=== PATIENT | female | born 1990 | race Caucasian/White ===

== ENCOUNTER 2016-07-18 16:11 | Emergency (ER) | payer MEDICARE, MEDICAID ==
[~2016-07-18] VITALS: Ht 167.6 cm; Wt 72.6 kg
[~2016-07-18 16:11] MED LIST: FERR325T PO; PREN27TA7 OR
[2016-07-18 17:00] VITALS: BP 124/76
[2016-07-18] MEDS ORDERED: IBUPROFEN 600 MG TAB PO ONE (17:15)
== END 2016-07-18 18:38 | disposition home or self-care (01) ==
LOC: EDBD 16:11 → ER 16:34
DX: S16.1XXA Strain of muscle, fascia and tendon at neck level, initial encounter (principal); R51 Headache; V03.99XA Pedestrian with other conveyance injured in collision with car, pick-up truck or van, unspecified whether traffic or nontraffic accident, initial encounter; Y93.01 Activity, walking, marching and hiking; Y99.8 Other external cause status; Y92.410 Unspecified street and highway as the place of occurrence of the external cause; Z88.8 Allergy status to other drugs, medicaments and biological substances
CPT/HCPCS: 70450; 72040

== ENCOUNTER 2018-11-07 19:30 | Emergency (ER) | payer MEDICARE, MEDICAID ==
[~2018-11-07] VITALS: Ht 157.5 cm; Wt 78.0 kg
[~2018-11-07 19:30] MED LIST changes: +FERR-20 PO; -FERR325T PO
[2018-11-07 20:29] LABS: Basophils # (auto) 0 uL; Eosinophils # (auto) 0.1 uL; White Blood Cell 6.6 10^3/uL (4.4-10.8)
[2018-11-07 20:30] LABS: Basophils % (auto) 0.4 % (0.0-2.0); Eosinophils % (auto) 1.1 % (0.0-7.0); Hematocrit 38.8 % (36.0-46.0); Hemoglobin 12.6 g/dL (12.2-16.2); Lymphocytes # (auto) 1.1 uL; Mean Corpuscular Hemoglobin 25.8 pg (28.0-32.0); Mean Corpuscular Hgb Conc. 32.5 g/dL (32.0-36.0); Mean Corpuscular Volume 79.5 fL (80.0-100.0); Monocytes # (auto) 0.5 uL; Monocytes % (auto) 7.6 % (0.0-12.0); Neutrophils # (auto) 4.9 uL; Neutrophils % (auto) 73.9 % (37.0-80.0); Platelet Count (auto) 151 10^3/uL (140-450); Red Blood Cells 4.88 10^6/uL (4.0-5.20)
[2018-11-07 20:40] LABS: Albumin 3.5 g/dL (3.4-5.0); Calcium 8.4 mg/dL (8.5-10.1); Potassium 3.7 mmol/L (3.5-5.1)
[2018-11-07 20:45] LABS: BUN/Creatinine Ratio 18.7; Bilirubin, Total 0.3 mg/dL (0.2-1.0); Total Protein 7.8 g/dL (6.4-8.2)
[2018-11-07 21:34] LABS: Urine Bacteria NONE SEEN /hpf (None Seen); Urine Blood 2+ /uL (Negative); Urine Mucus FEW (None Seen); Urine Specific Gravity 1.027 (1.001-1.035); Urine WBC <1 /hpf (0 - 5)
[2018-11-07] MEDS ORDERED: SODIUM CHLORIDE 0.9% 1,000 ML IV ONE (23:00)
[2018-11-07] MEDS ORDERED: MORPHINE SULFATE 4 MG/ML SYR/VIAL IV ONE (23:00)
[2018-11-07] MEDS ORDERED: ONDANSETRON HCL 4 MG/2 ML VIAL IV ONE (23:00)
[2018-11-08 01:00] VITALS: BP 94/49
== END 2018-11-08 02:40 | disposition home or self-care (01) ==
LOC: ER 19:52
DX: N83.202 Unspecified ovarian cyst, left side (principal); Z98.51 Tubal ligation status; Z88.0 Allergy status to penicillin
CPT/HCPCS: 36415; 74176; 76830; 80053; 81001; 82150; 83690; 84702; 85025; 96374; 96375; 99284; J2270; J2405; J7030

== ENCOUNTER 2018-11-08 20:03 | Emergency (ER) | payer MEDICARE, MEDICAID ==
[~2018-11-08] VITALS: Ht 157.5 cm; Wt 78.0 kg
[2018-11-09] MEDS ORDERED: HYDROmorphone HCL 2 MG/ML VL IV ONE (01:45)
[2018-11-09] MEDS ORDERED: ONDANSETRON HCL 4 MG/2 ML VIAL IV ONE (01:45)
[2018-11-09 01:57] LABS: Basophils # (auto) 0 uL; Basophils % (auto) 0.6 % (0.0-2.0); Eosinophils # (auto) 0.1 uL; Eosinophils % (auto) 1.1 % (0.0-7.0); Hematocrit 36.7 % (36.0-46.0); Hemoglobin 12.1 g/dL (12.2-16.2); Lymphocytes # (auto) 1.1 uL; Lymphocytes % (auto) 17.1 % (10.0-50.0); Mean Corpuscular Hemoglobin 26.1 pg (28.0-32.0); Mean Corpuscular Hgb Conc. 33.1 g/dL (32.0-36.0); Mean Corpuscular Volume 78.8 fL (80.0-100.0); Monocytes # (auto) 0.8 uL; Monocytes % (auto) 11.6 % (0.0-12.0); Neutrophils # (auto) 4.7 uL; Neutrophils % (auto) 69.6 % (37.0-80.0); Platelet Count (auto) 139 10^3/uL (140-450); Red Blood Cells 4.65 10^6/uL (4.0-5.20); Red Cell Distribution Width 15.3 % (11.8-14.3); White Blood Cell 6.7 10^3/uL (4.4-10.8)
[2018-11-09 02:11] LABS: INR 1.05 (0.9-1.15)
[2018-11-09 02:12] LABS: Albumin 3.4 g/dL (3.4-5.0); BUN/Creatinine Ratio 14.1; Calcium 8.1 mg/dL (8.5-10.1); Potassium 3.5 mmol/L (3.5-5.1)
[2018-11-09 02:15] LABS: Bilirubin, Total 0.4 mg/dL (0.2-1.0); Total Protein 7.2 g/dL (6.4-8.2)
[2018-11-09] MEDS ORDERED: SODIUM CHLORIDE 0.9% 1,000 ML IV ONE (02:15)
[2018-11-09] MEDS ORDERED: KETOROLAC TROMETH 30 MG/ML 1ML VIAL IV ONE (02:15)
[2018-11-09 03:54] LABS: Urine Bacteria FEW /hpf (None Seen); Urine Blood 2+ /uL (Negative); Urine Mucus FEW (None Seen); Urine Specific Gravity 1.017 (1.001-1.035); Urine WBC 12 /hpf (0 - 5)
[2018-11-09] MEDS ORDERED: cefTRIAXone 1GM/50ML D5W 50 ML IV ONE (04:30)
[2018-11-09 05:44] VITALS: BP 103/53
== END 2018-11-09 04:26 | disposition home or self-care (01) ==
LOC: ER 20:03
DX: N39.0 Urinary tract infection, site not specified (principal); Z88.0 Allergy status to penicillin; Z79.899 Other long term (current) drug therapy; Z98.51 Tubal ligation status
CPT/HCPCS: 36415; 80053; 81001; 82150; 83690; 83735; 84702; 85025; 85610; 85730; 94761; 96365; 96375; 99283; J0696; J1170; J1885; J2405; J7030

== ENCOUNTER 2019-03-22 00:08 | Emergency (ER) | payer MEDICARE, MEDICAID ==
[~2019-03-22] VITALS: Ht 157.5 cm; Wt 76.2 kg
[2019-03-22 01:07] LABS: Basophils # (auto) 0.1 uL; Eosinophils # (auto) 0.1 uL
[2019-03-22 01:08] LABS: Basophils % (auto) 1.4 % (0.0-2.0); Eosinophils % (auto) 1.5 % (0.0-7.0); Hematocrit 36.7 % (36.0-46.0); Hemoglobin 12.2 g/dL (12.2-16.2); Lymphocytes # (auto) 2.1 uL; Lymphocytes % (auto) 26.1 % (10.0-50.0); Mean Corpuscular Hemoglobin 26.7 pg (28.0-32.0); Mean Corpuscular Hgb Conc. 33.3 g/dL (32.0-36.0); Mean Corpuscular Volume 80.1 fL (80.0-100.0); Monocytes # (auto) 0.7 uL; Nucleated Red Blood Cells % 0.1 %; Platelet Count (auto) 163 10^3/uL (140-450); Red Blood Cells 4.59 10^6/uL (4.0-5.20); Red Cell Distribution Width 15.3 % (11.8-14.3); White Blood Cell 8.1 10^3/uL (4.4-10.8)
[2019-03-22 01:26] LABS: Albumin 3.6 g/dL (3.4-5.0); Calcium 9.1 mg/dL (8.5-10.1); Potassium 3.5 mmol/L (3.5-5.1)
[2019-03-22 01:29] LABS: BUN/Creatinine Ratio 24.7
[2019-03-22 01:38] LABS: Bilirubin, Total 0.2 mg/dL (0.2-1.0); Total Protein 7.8 g/dL (6.4-8.2)
[2019-03-22] MEDS ORDERED: SODIUM CHLORIDE 0.9% 1,000 ML IV ONE (06:30)
[2019-03-22 08:47] VITALS: BP 103/57
[2019-03-22 09:07] LABS: Urine Bacteria NONE SEEN /hpf (None Seen); Urine Blood 1+ /uL (Negative); Urine Mucus FEW (None Seen); Urine Specific Gravity 1.031 (1.001-1.035); Urine WBC 1 /hpf (0 - 5)
[2019-03-22] MEDS ORDERED: cefTRIAXone 1GM/50ML D5W 50 ML IV ONE (09:45)
[2019-03-22] MEDS ORDERED: cefTRIAXone SOD 1,000 MG VL ONE (09:45)
[2019-03-22] MEDS ORDERED: HYDROcodone-ACET 5/325MG TAB ONE (09:49)
[2019-03-22] MEDS ORDERED: HYDROcodone-ACET 5/325MG TAB PO ONE (10:00)
[2019-03-23 06:06] LABS: RPR Non Reactive (Non Reactive)
== END 2019-03-22 11:36 | disposition home or self-care (01) ==
LOC: ER 00:08
DX: N73.9 Female pelvic inflammatory disease, unspecified (principal); Z98.51 Tubal ligation status; Z87.42 Personal history of other diseases of the female genital tract
CPT/HCPCS: 36415; 76856; 80053; 81001; 84702; 85025; 86592; 87491; 87591; 96365; 99284; J0696; J7030

== ENCOUNTER 2021-05-01 00:15 | Emergency (ER) | payer MEDICARE, MEDICAID ==
[~2021-05-01] VITALS: Ht 157.5 cm; Wt 65.8 kg
[2021-05-01] MEDS ORDERED: KETOROLAC TROMETH 30 MG/ML 1ML VIAL IM ONE (05:00)
[2021-05-01 05:09] VITALS: BP 116/70
== END 2021-05-01 06:15 | disposition home or self-care (01) ==
LOC: ER 00:15
DX: S40.021A Contusion of right upper arm, initial encounter (principal); S50.11XA Contusion of right forearm, initial encounter; R22.0 Localized swelling, mass and lump, head; Z98.51 Tubal ligation status; Z88.0 Allergy status to penicillin; Y04.2XXA Assault by strike against or bumped into by another person, initial encounter; Y93.89 Activity, other specified; Y92.89 Other specified places as the place of occurrence of the external cause; Y99.8 Other external cause status
CPT/HCPCS: 73060; 73090; 96372

== ENCOUNTER 2021-05-20 17:57 | Emergency (ER) | payer MEDICARE, MEDICAID, OTHER ==
[~2021-05-20] VITALS: Ht 157.5 cm; Wt 74.8 kg
[2021-05-20] MEDS ORDERED: ONDANSETRON HCL 4 MG/2 ML VIAL IV ONE (19:00)
[2021-05-20] MEDS ORDERED: HYDROmorphone HCL 2 MG/ML VL IV ONE (19:00)
[2021-05-20 19:15] LABS: Basophils # (auto) 0.1 10 ^3/uL (0-0.2); Eosinophils # (auto) 0.1 10 ^3/uL (0-0.8); Monocytes # (auto) 0.9 10 ^3/uL (0-1.3)
[2021-05-20 19:17] LABS: Basophils % (auto) 0.7 % (0.0-2.0); Eosinophils % (auto) 1.2 % (0.0-7.0); Hemoglobin 11.6 g/dL (12.2-16.2); Lymphocytes # (auto) 1.7 10 ^3/uL (0.4-5.4); Lymphocytes % (auto) 20.8 % (10.0-50.0); Mean Corpuscular Hemoglobin 25.9 pg (28.0-32.0); Mean Corpuscular Hgb Conc. 33.1 g/dL (32.0-36.0); Mean Corpuscular Volume 78.2 fL (80.0-100.0); Monocytes % (auto) 10.8 % (0.0-12.0); Neutrophils # (auto) 5.5 10 ^3/uL (1.6-8.6); Neutrophils % (auto) 66.5 % (37.0-80.0); Nucleated Red Blood Cells % 0.1 %; Red Blood Cells 4.48 10^6/uL (4.0-5.20); Red Cell Distribution Width 14.5 % (11.8-14.3); White Blood Cell 8.2 10^3/uL (4.4-10.8)
[2021-05-20] MEDS ORDERED: IOHEXOL 300 MG/ML 100ML BOTTLE IJ ONE (19:28)
[2021-05-20 19:36] LABS: Albumin 3.3 g/dL (3.4-5.0); Calcium 8.7 mg/dL (8.5-10.1); Potassium 3.6 mmol/L (3.5-5.1)
[2021-05-20 19:40] LABS: Bilirubin, Total 0.2 mg/dL (0.2-1.0); Total Protein 7.3 g/dL (6.4-8.2)
[2021-05-20 20:27] LABS: Urine Bacteria MOD /hpf (None Seen); Urine Blood 3+ /uL (Negative); Urine Mucus FEW (None Seen); Urine Specific Gravity 1.029 (1.001-1.035); Urine WBC 27 /hpf (0 - 5)
[2021-05-20 20:42] LABS: BUN/Creatinine Ratio 30.6
[2021-05-21] MEDS ORDERED: KETOROLAC TROMETH 30 MG/ML 1ML VIAL IV ONE (00:45)
[2021-05-21] MEDS ORDERED: NAP500T PO (00:57)
[2021-05-21 01:18] VITALS: BP 101/66
== END 2021-05-21 01:45 | disposition home or self-care (01) ==
LOC: EDBD 17:57 → EDUNIT# 17:57 → ER 17:57
DX: S13.4XXA Sprain of ligaments of cervical spine, initial encounter (principal); S93.401A Sprain of unspecified ligament of right ankle, initial encounter; S00.03XA Contusion of scalp, initial encounter; S29.9XXA Unspecified injury of thorax, initial encounter; Z86.2 Personal history of diseases of the blood and blood-forming organs and certain disorders involving the immune mechanism; Z79.899 Other long term (current) drug therapy; Z88.0 Allergy status to penicillin; Z91.018 Allergy to other foods; V43.62XA Car passenger injured in collision with other type car in traffic accident, initial encounter; Y93.89 Activity, other specified; Y92.410 Unspecified street and highway as the place of occurrence of the external cause; Y99.8 Other external cause status
CPT/HCPCS: 36415; 70450; 71260; 72125; 73610; 74177; 80053; 81001; 83690; 84702; 85025; 96374; 96375; 96376; 99285; J1170; J1885; J2405; Q9967

== ENCOUNTER 2023-11-30 12:14 | Emergency (ER) | payer BC, MEDICAID ==
[~2023-11-30] VITALS: Ht 157.5 cm; Wt 73.3 kg
[~2023-11-30 12:14] MED LIST changes: -FERR-20 PO; +FERR325T24 PO
[2023-11-30 12:55] VITALS: BP 99/54; PULSE 69; RESP 18; TEMP 99.1; O2SAT 98
[2023-11-30] MEDS ORDERED: NAPR-746 PO (13:30)
== END 2023-11-30 13:43 | disposition home or self-care (01) ==
LOC: ER 12:27
DX: S60.221A Contusion of right hand, initial encounter (principal); F41.9 Anxiety disorder, unspecified; Z86.2 Personal history of diseases of the blood and blood-forming organs and certain disorders involving the immune mechanism; Z98.890 Other specified postprocedural states; Z88.0 Allergy status to penicillin; Z91.018 Allergy to other foods; Z79.899 Other long term (current) drug therapy; W22.8XXA Striking against or struck by other objects, initial encounter; Y93.89 Activity, other specified; Y92.89 Other specified places as the place of occurrence of the external cause; Y99.8 Other external cause status
CPT/HCPCS: 73130

== ENCOUNTER 2024-02-22 09:38 | Inpatient (IN) | payer BC, MEDICAID ==
[~2024-02-22] VITALS: Ht 154.9 cm; Wt 82.7 kg
[~2024-02-22 09:38] MED LIST changes: +NAPR-746 PO
--- NOTE | 2024-02-22 11:02 | ED.PDOC ---
History of Present Illness HPI Comments 34 y/o F, Hx of anemia, anxiety, cholelithiasis, seizures, obesity, and BTL, presents with c/o right-sided flank pain, today. Patient endorses on sudden and unprovoked onset of pain, this morning, that she comments on being non-radiating and a "20/10" in severity. She states on having no prior Hx of pain in the past and having a multiple near-syncope sensations. She endorses no Hx of kidney stones in the past in addition to any further relevant or pertinent Hx, such as recent strenuous activities. She denies any urinary symptoms, nausea, vomiting, or other associated symptoms or modifiers at this time. Chief Complaint: Flank Pain Time Seen by MD: 10:50 Primary Care Provider: Vincent Valles Notes: Nurses Notes, Medications, Allergies Allergies: Coded Allergies: Cinnamon (Verified Allergy, Unknown, THROAT CLOSES, DIFFICULTY BREATHING, 12/18/13) Penicillins (Unverified Allergy, Unknown, 01/25/15) Home Meds Active Scripts Naproxen (Naproxen) 500 Mg Tab, 500 MG PO BID, #30 TAB Prov:ART TRUJILLO 11/30/23 Reported Medications Ferrous Sulfate (Ferrous Sulfate) 325 Mg Tab, 325 MG PO BIDWM for 30 Days, MG 03/12/15 Vit W/ Ferrous Fumara () 1 Tab Tab, 1 TAB OR DAILY, TAB 08/27/13 Information Source: Patient Mode of Arrival: EMS Severity: Moderate Timing: Hours Duration: Since onset Prehospital treatment: 12 Lead EKG, [employer] Past Medical History PAST MEDICAL HISTORY: Anemia, Anxiety, Gallstones, Seizures Past Medical History (Other): obesity Surgical History: BTL Surgical History (Other): "ear tubes" 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 [employer]A FIELD WORKER History Family History Family History: Reviewed,noncontributory to illness, Family hx of DM, Family hx of heart mauricio Social History Smoker: Non-Smoker Alcohol: Denies ETOH Use Drugs: Denies Drug Use Lives In: Home Constitutional: denies: chills, diaphoresis, fatigue, fever, malaise, sweats, weakness, others EENTM: denies: blurred vision, double vision, ear bleeding, ear discharge, ear drainage, ear pain, ear ringing, eye pain, eye redness, hearing loss, mouth pain, mouth swelling, nasal discharge, nose bleeding, nose congestion, nose pain, photophobia, tearing, throat pain, throat swelling, voice changes, others Respiratory: denies: cough, hemoptysis, orthopnea, SOB at rest, shortness of breath, SOB with excertion, stridor, wheezing, others Cardiovascular: denies: chest pain, dizzy spells, diaphoresis, Dyspnea on exertion, edema, irregular heart beat, left arm pain, lightheadedness, palpitations, PND, syncope, others Gastrointestinal: denies: abdomen distended, abdominal pain, blood streaked bowels, constipated, diarrhea, dysphagia, difficulty swallowing, hematemesis, melena, nausea, poor appetite, poor fluid intake, rectal bleeding, rectal pain, vomiting, others Genitourinary: reports: flank pain (right-sided); denies: abnormal vagina bleeding, burning, dyspareunia, dysuria, frequency, hematuria, incontinence, pain, , vagina discharge, urgency, others Neurological: denies: dizziness, fainting, headache, left sided numbness, left sided weakness, numbness, paresthesia, pre-existing deficit, right sided numbness, right sided weakness, seizure, speech problems, tingling, tremors, weakness, others Musculoskeletal: denies: back pain, gout, joint pain, joint swelling, muscle pain, muscle stiffness, neck pain, others Integumetry: denies: bruises, change in color, change in hair/nails, dryness, laceration, lesions, lumps, rash, wounds, others Allergic/Immunocompromised: denies: Difficulty Healing, Frequent Infections, Hives, Itching, others Hematologic/Lymphatic: denies: anemia, blood clots, easy bleeding, easy bruising, swollen glands, others Endocrine: denies: excessive hunger, excessive sweating, excessive thirst, excessive urination, flushing, intolerance to cold, intolerance to heat, unexplained weight gain, unexplained weight loss, others Psychiatric: denies: anxiety, bipolar disorder, depression, hopeless, panic disorder, schizophrenia, sleepless, suicidal, others All Other Systems: Reviewed and Negative Physical Exam General Appearance: Moderate Distress HEENT: Normal ENT Inspection, Pharynx Normal, TMs Normal Neck: Full Range of Motion, Non-Tender, Normal, Normal Inspection Respiratory: Chest Non-Tender, Lungs Clear, No Accessory Muscle Use, No Respiratory Distress, Normal Breath Sounds Cardiovascular: No Edema, No JVD, No Murmur, No Gallop, Normal Peripheral Pulses, Regular Rate/Rhythm Breast Exam: Deferred Gastrointestinal: No Organomegaly, Non Tender, No Pulsatile Mass, Normal Bowel Sounds, Soft Genitalia: Deferred Pelvic: Deferred Rectal: Deferred Extremities: No calf tenderness, Normal capillary refill, Normal inspection, Normal range of motion, Non-tender, No pedal edema Musculoskeletal : Apperance: Normal Neurologic: Alert, hydrogenation operator II-XII nml as Tested, No Motor Deficits, Normal Affect, Normal Mood, No Sensory Deficits Cerebellar Function: Normal Reflexes: Normal Skin: Dry, Normal Color, Warm Lymphatic: No Adenopathy Was a procedure done? Was a procedure done?: No Differential Dx Considerations may include: nephrolithiasis, pyelonephritis, cholelithiasis, cholecystis, cystis, ovarian torsion, ovarian cysts, acute abdomen X-Ray, Labs, Meds, VS Vital Signs Date Time Temp Pulse Resp B/P (MAP) Pulse Ox O2 Delivery O2 Flow Rate FiO2 02/22/24 14:15 78 19 123/47 02/22/24 11:40 71 20 127/58 02/22/24 10:58 71 18 96 Room Air 02/22/24 10:58 71 18 127/58 (81) 98 02/22/24 09:41 98.0 72 18 113/62 (79) 97 Lab Test 02/22/24 11:50 Range/Units White Blood Count 10.4 4.4-10.8 10^3/uL Red Blood Count 4.76 4.0-5.20 10^6/uL Hemoglobin 13.5 12.2-16.2 g/dL Hematocrit 39.3 36.0-46.0 % Mean Corpuscular Volume 82.7 80.0-100.0 fL Mean Corpuscular Hemoglobin 28.3 28.0-32.0 pg Mean Corpuscular Hemoglobin Concent 34.2 32.0-36.0 g/dL Red Cell Distribution Width 14.4 H 11.8-14.3 % Platelet Count 162 140-450 10^3/uL Mean Platelet Volume 8.3 6.9-10.8 fL Neutrophils (%) (Auto) 83.3 H 37.0-80.0 % Lymphocytes (%) (Auto) 11.1 10.0-50.0 % Monocytes (%) (Auto) 5.2 0.0-12.0 % Eosinophils (%) (Auto) 0.1 0.0-7.0 % Basophils (%) (Auto) 0.3 0.0-2.0 % Neutrophils # (Auto) 8.7 H 1.6-8.6 10 ^3/uL Lymphocytes # (Auto) 1.2 0.4-5.4 10 ^3/uL Monocytes # (Auto) 0.5 0-1.3 10 ^3/uL Eosinophils # (Auto) 0 0-0.8 10 ^3/uL Basophils # (Auto) 0 0-0.2 10 ^3/uL Nucleated Red Blood Cells 0.0 % Sodium Level 139 136-145 mmol/L Potassium Level 3.9 3.5-5.1 mmol/L Chloride Level 110 H 98-107 mmol/L Carbon Dioxide Level 22 20-31 mmol/L Anion Gap 7 5-15 Blood Urea Nitrogen 16 9-23 mg/dL Creatinine 0.65 0.550-1.02 mg/dL Glomerular Filtration Rate Calc 118 >90 mL/min BUN/Creatinine Ratio 24.6 H 10.0-20.0 Serum Glucose 128 H 74-106 mg/dL Calcium Level 9.4 8.7-10.4 mg/dL Total Bilirubin 0.2 0.2-1.0 mg/dL Aspartate Amino Transferase (AST) 13 13-40 U/L Alanine Aminotransferase (ALT) 16 7-40 U/L Alkaline Phosphatase 57 46-116 U/L Total Protein 7.0 5.7-8.2 g/dL Albumin 4.1 3.2-4.8 g/dL Current Medications Medications (Trade) Dose Ordered Sig/Perla Route Start Time Stop Time Status Last Admin Ondansetron HCl (Zofran) 4 mg ONCE ONCE IV 02/22/24 11:00 02/22/24 11:01 DC 02/22/24 11:40 Morphine Sulfate 4 mg ONCE ONCE IV 02/22/24 11:00 02/22/24 11:01 DC 02/22/24 11:40 Sodium Chloride 500 ml @ 500 mls/hr Q1H ONCE IVB 02/22/24 11:00 02/22/24 11:59 DC 02/22/24 11:53 Ketorolac Tromethamine (Toradol Injection) 30 mg ONCE ONCE IV 02/22/24 11:00 02/22/24 11:01 DC 02/22/24 11:40 Morphine Sulfate 4 mg ONCE ONCE IV 02/22/24 14:15 02/22/24 14:16 DC 02/22/24 14:15 PROCEDURE(s): ABPL - CT AB PEL WO CON-NO ORAL OR IV IMPRESSION: 1. There is no acute process in the abdomen and pelvis. 2. 3.9 cm left ovarian cyst. 3. Multiple nonspecific scattered small subcentimeter mesenteric and retroperitoneal lymph nodes. These may be reactive in nature. Clinical correlation is recommended. IV Hep-Lock was established. The patient was given Zofran 4 mg IV push for the nausea The patient was given morphine 4 mg IV push for the pain The patient was also given ketorolac 30 mg IV push. After the bolus of normal saline in the medications, the patient did have brief relief of the pain but then the pain returned. The patient's CBC is within normal limits The chemistry panel is within normal limits. At this time, the patient was is still having persistent pain so we are giving the patient another dose of morphine for the pain The patient was being admitted to the hospitalist. Images Reviewed?: Images reviewed and evaluated by me Time of 1ST Reevaluation: 11:20 Reevaluation 1ST: Unchanged Patient Education/Counseling: Diagnosis, Treatment, Prognosis Family Education/Counseling: No Family Present Departure 1 Departure Time of Disposition: 15:48 Impression: Primary Impression: Right flank pain Additional Impression: Abdominal pain of unknown etiology Disposition: ADMITTED INPATIENT Admit to: Med Surg Condition: Fair Critical Care Note Critical Care Time?: No Stability Stability form required: Yes Unstable for transfer: ED Physician Assesment (Clinical assesment) Heart Score Heart Score: Heart Score Response (Comments) Value History N/A 0 EKG N/A 0 Age N/A 0 Risk Factors N/A 0 Troponin N/A 0 Total 0 I personally scribed for SIDNEY STAFFORD MD ([email or web address]) on 02/22/24 at 11:01. Electronically submitted by Paras Chang ([email or web address]). I personally scribed for SIDNEY STAFFORD MD ([email or web address]) on 02/22/24 at 12:07. Electronically submitted by Paras Chang ([email or web address]). SIDNEY STAFFORD MD Feb 22, 2024 11:01
--- NOTE | 2024-02-22 11:38 | DVH ---
CT ABDOMEN AND PELVIS WITHOUT CONTRAST CLINICAL HISTORY: right flank pain TECHNIQUE: Multiple contiguous axial images of the abdomen and pelvis without intravenous contrast. The images were reformatted degenerate coronal and sagittal reconstructions. All CT scans at this medical facility are performed using dose modulation techniques as appropriate t o a performed exam including the following:Automated exposure control was utilized; adjustment of the MA and/or KV according to patient size; and use of iterative reconstruction technique. Radiation Dose Information: CT Dose: CTDI volume is 10 mGy. Dose-length product is 595 mGy*cm Comparison: None FINDINGS: Evaluation of the abdomen and pelvis is limited without intravenous contrast. There is no evidence of nephrolithiasis or hydronephrosis. There is no evidence of a ureteral calculu s or hydroureter. The liver, gallbladder, pancreas, adrenal glands, and spleen appear within normal limits. There are multiple nonspecific scattered small subcentimeter mesenteric and retroperitoneal lymph nod es. There is no free fluid or free air. The stomach grossly appears unremarkable. The small and large bowel loops demonstrate normal caliber . The abdominal aorta and IVC appear within normal limits. The bladder appears unremarkable for the degree of distention. Uterus appears within normal limits. T here is a 3.9 cm left ovarian cyst.. There is no gross evidence of a pelvic mass. There is no free f luid collection. Lung bases are clear. There is no acute osseous abnormality. IMPRESSION: 1. There is no acute process in the abdomen and pelvis. 2. 3.9 cm left ovarian cyst. 3. Multiple nonspecific scattered small subcentimeter mesenteric and retroperitoneal lymph nodes. The se may be reactive in nature. Clinical correlation is recommended. HS:Y
[2024-02-22] MEDS: MORPHINE SULFATE 4 MG/ML SYR/VIAL IV ONE ×2 (11:40→14:15)
[2024-02-22] MEDS: KETOROLAC TROMETH 30 MG/ML 1ML VIAL IV ONE (11:40)
[2024-02-22] MEDS: ONDANSETRON HCL 4 MG/2 ML VIAL IV ONE (11:40)
[2024-02-22] MEDS: SODIUM CHLORIDE 0.9% 500 ML IVB ONE (11:53)
[2024-02-22 12:16] LABS: Basophils # (auto) 0 10 ^3/uL (0-0.2); Basophils % (auto) 0.3 % (0.0-2.0); Eosinophils # (auto) 0 10 ^3/uL (0-0.8); Eosinophils % (auto) 0.1 % (0.0-7.0); Hematocrit 39.3 % (36.0-46.0); Hemoglobin 13.5 g/dL (12.2-16.2); Lymphocytes # (auto) 1.2 10 ^3/uL (0.4-5.4); Lymphocytes % (auto) 11.1 % (10.0-50.0); Mean Corpuscular Hemoglobin 28.3 pg (28.0-32.0); Mean Corpuscular Hgb Conc. 34.2 g/dL (32.0-36.0); Mean Corpuscular Volume 82.7 fL (80.0-100.0); Monocytes # (auto) 0.5 10 ^3/uL (0-1.3); Monocytes % (auto) 5.2 % (0.0-12.0); Neutrophils # (auto) 8.7 10 ^3/uL (1.6-8.6); Neutrophils % (auto) 83.3 % (37.0-80.0); Platelet Count (auto) 162 10^3/uL (140-450); Red Blood Cells 4.76 10^6/uL (4.0-5.20); Red Cell Distribution Width 14.4 % (11.8-14.3); White Blood Cell 10.4 10^3/uL (4.4-10.8)
[2024-02-22 12:36] LABS: Alanine Aminotransferase 16 U/L (7-40); Albumin 4.1 g/dL (3.2-4.8); Alkaline Phosphatase 57 U/L (46-116); Anion Gap 7 (5-15); BUN/Creatinine Ratio 24.6 (10.0-20.0); Blood Urea Nitrogen 16 mg/dL (9-23); Calcium 9.4 mg/dL (8.7-10.4); Carbon Dioxide 22 mmol/L (20-31); Potassium 3.9 mmol/L (3.5-5.1); Sodium 139 mmol/L (136-145)
[2024-02-22 12:43] LABS: Aspartate Aminotransferase 13 U/L (13-40); Bilirubin, Total 0.2 mg/dL (0.2-1.0); Chloride 110 mmol/L (98-107); Glucose 128 mg/dL (74-106)
[2024-02-22] MEDS ORDERED: ACETAMINOPHEN 325 MG TAB PO PRN (15:00)
[2024-02-22] MEDS ORDERED: ONDANSETRON HCL 4 MG/2 ML VIAL IV PRN (15:00)
[2024-02-22] MEDS ORDERED: LORazepam 0.5 MG TAB PO PRN (15:00)
--- NOTE | 2024-02-22 15:04 | DVHHP2 ---
History of Present Illness Reason for Visit: Right flank pain History of Present Illness Ingrid Fay is a 34-year-old female with past medical history of anemia, anxiety, cholelithiasis, seizure at 16 years old last reported, obesity, bilateral tubal ligation, and bilateral ear tubes who presents to the ED today for nausea, vomiting, and right flank pain x1 day. Patient reports that around 6:00 a.m. this morning she woke up with right flank pain aching, constant in nature, and 10/10 pain. Patient reports that she was vomiting yellow emesis to day and has been unable to eat. Patient reports that she is taking her medications and compliant. Patient also reports that she lives in her car. Patient denies substance, tobacco, illicit drug use, fever, chills, diarrhea, lightheadedness, and dizziness. 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 GI: Other (Cholelithiasis) Heme/Onc: Anemia NOS Psych: Anxiety Past Medical History Obesity Bilateral ear tubes as a baby Past Surgical History: Tubal Ligation Family History: Other (Dad heart disease) Smoke: No ALCOHOL: none Drugs: None Lives: Homeless Domestic Violence: Neg Review of Systems Constitutional: No: Fever, Chills, Sweats, Weakness, Malaise, Other Eyes: No: Pain, Vision change, Conjunctivae inflammation, Eyelid inflammation, Other, Redness ENT: No: Ear pain, Ear discharge, Nose pain, Nose discharge, Nose congestion, Mouth pain, Mouth swelling, Throat pain, Throat swelling, Other Respiratory: No: Cough, Dry, Shortness of breath, SOB with excertion, Wheezing, Hemoptysis, Pleuritic Pain, Sputum, Wheezing, Other Cardiovascular: No: Chest Pain, Palpitations, Orthopnea, Paroxysmal Noc. Dyspnea, Edema, Lt Headedness, Other Gastrointestinal: Nausea, Vomiting, Abdominal Pain; No: Diarrhea, Constipation, Melena, Hematochezia, Other Genitourinary: No Dysuria, No Frequency, No Incontinence, No Hematuria, No Retention, No Other Musculoskeletal: back pain; No: other, neck pain, shoulder pain, arm pain, hand pain, leg pain, foot pain Skin: No: Rash, Lesions, Jaundice, Bruising, Other Neurological: No: Weakness, Numbness, Incoordination, Change in speech, Confusion, Seizures, Other Allergies: Coded Allergies: NO KNOWN ALLERGIES (Unverified , 02/23/24) Exam Vital Signs Vital Signs Date Time Temp Pulse Resp B/P (MAP) Pulse Ox O2 Delivery O2 Flow Rate FiO2 02/22/24 11:40 71 20 127/58 02/22/24 10:58 96 Room Air 02/22/24 09:41 98.0 General Appearance: Alert, Oriented X3, Cooperative, No acute distress HEENT: Atraumatic, PERRLA, EOMI, Mucous membr. moist/pink Respiratory: Clear to auscultation, Normal air movement Cardiovascular: Regular rate, Normal S1, Normal S2, No murmurs Abdominal: Normal bowel sounds, Soft, No hepatospenomegaly, No masses Extremities: No clubbing, No cyanosis, No edema, Normal pulses, No tenderness/swelling Skin: No rashes, No breakdown, No significant lesion Neuro: Normal gait, Normal speech, Strength at 5/5 X4 ext, Normal tone, Sensation intact Psych/Mental Status: Mental status NL, Mood NL Labs/Xrays Labs Test 02/22/24 11:50 Range/Units White Blood Count 10.4 4.4-10.8 10^3/uL Red Blood Count 4.76 4.0-5.20 10^6/uL Hemoglobin 13.5 12.2-16.2 g/dL Hematocrit 39.3 36.0-46.0 % Mean Corpuscular Volume 82.7 80.0-100.0 fL Mean Corpuscular Hemoglobin 28.3 28.0-32.0 pg Mean Corpuscular Hemoglobin Concent 34.2 32.0-36.0 g/dL Red Cell Distribution Width 14.4 H 11.8-14.3 % Platelet Count 162 140-450 10^3/uL Mean Platelet Volume 8.3 6.9-10.8 fL Neutrophils (%) (Auto) 83.3 H 37.0-80.0 % Lymphocytes (%) (Auto) 11.1 10.0-50.0 % Monocytes (%) (Auto) 5.2 0.0-12.0 % Eosinophils (%) (Auto) 0.1 0.0-7.0 % Basophils (%) (Auto) 0.3 0.0-2.0 % Neutrophils # (Auto) 8.7 H 1.6-8.6 10 ^3/uL Lymphocytes # (Auto) 1.2 0.4-5.4 10 ^3/uL Monocytes # (Auto) 0.5 0-1.3 10 ^3/uL Eosinophils # (Auto) 0 0-0.8 10 ^3/uL Basophils # (Auto) 0 0-0.2 10 ^3/uL Nucleated Red Blood Cells 0.0 % Sodium Level 139 136-145 mmol/L Potassium Level 3.9 3.5-5.1 mmol/L Chloride Level 110 H 98-107 mmol/L Carbon Dioxide Level 22 20-31 mmol/L Anion Gap 7 5-15 Blood Urea Nitrogen 16 9-23 mg/dL Creatinine 0.65 0.550-1.02 mg/dL Glomerular Filtration Rate Calc 118 >90 mL/min BUN/Creatinine Ratio 24.6 H 10.0-20.0 Serum Glucose 128 H 74-106 mg/dL Calcium Level 9.4 8.7-10.4 mg/dL Total Bilirubin 0.2 0.2-1.0 mg/dL Aspartate Amino Transferase (AST) 13 13-40 U/L Alanine Aminotransferase (ALT) 16 7-40 U/L Alkaline Phosphatase 57 46-116 U/L Total Protein 7.0 5.7-8.2 g/dL Albumin 4.1 3.2-4.8 g/dL CT ABDOMEN AND PELVIS WITHOUT CONTRAST CLINICAL HISTORY: right flank pain TECHNIQUE: Multiple contiguous axial images of the abdomen and pelvis without intravenous contrast. The images were reformatted degenerate coronal and sagittal reconstructions. All CT scans at this medical facility are performed using dose modulation techniques as appropriate to a performed exam including the following:Automated exposure control was utilized; adjustment of the MA and/or KV according to patient size; and use of iterative reconstruction technique. Radiation Dose Information: CT Dose: CTDI volume is 10 mGy. Dose-length product is 595 mGy*cm Comparison: None FINDINGS: Evaluation of the abdomen and pelvis is limited without intravenous contrast. There is no evidence of nephrolithiasis or hydronephrosis. There is no evidence of a ureteral calculus or hydroureter. The liver, gallbladder, pancreas, adrenal glands, and spleen appear within normal limits. There are multiple nonspecific scattered small subcentimeter mesenteric and re troperitoneal lymph nodes. There is no free fluid or free air. The stomach grossly appears unremarkable. The small and large bowel loops demonstrate normal caliber. The abdominal aorta and IVC appear within normal limits. The bladder appears unremarkable for the degree of distention. Uterus appears within normal limits. There is a 3.9 cm left ovarian cyst.. There is no gross evidence of a pelvic mass. There is no free fluid collection. Lung bases are clear. There is no acute osseous abnormality. IMPRESSION: 1. There is no acute process in the abdomen and pelvis. 2. 3.9 cm left ovarian cyst. 3. Multiple nonspecific scattered small subcentimeter mesenteric and retroperitoneal lymph nodes. These may be reactive in nature. Clinical correlation is recommended. 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 FEN/PPX diet HL DVT ppx not indicated patient ambulating PUD ppx not indicated no history of GERD or GI bleed Admit to [facility] Home medications reconciled Discussed plan of care with patient and nurse Plan discussed with: Patient My Orders Orders - ELSIE ABREU Procedure Category Date Status Time Admit ADMIT 02/22/24 Transmitted 14:49 Code Status CODE 02/22/24 Transmitted 14:49 Vital Signs [facility] 02/22/24 Transmitted 14:49 Review Orders With [facility] 02/22/24 Transmitted Adm. 14:49 Regular Diet DIET 02/22/24 Transmitted Dinner Lorazepam Tablet [facility] 02/22/24 Transmitted (Ativan Tablet) 15:[address] [facility] 02/22/24 Transmitted (Tylenol Tablet) 15:00 Notify Md Of Changes [facility] 02/22/24 Transmitted From Base 14:49 Advance Directive [facility] 02/22/24 Transmitted 14:49 Basic Metabolic Panel LAB 02/23/24 Verified 04:00 Complete Blood Count LAB 02/23/24 Verified 04:00 Allergies [facility] 02/22/24 Transmitted 14:49 Hydrocodone-Acet [facility] 02/22/24 Transmitted 5/325mg Tab ([place] 15:[address] [facility] 02/22/24 Transmitted (Zofran) 15:00 Drug Screen LAB 02/22/24 Transmitted 14:49 Morphine 2mg Iv Q4hprn [facility] 02/22/24 Transmitted 15:00 Date of Service: Feb 22, 2024 Billing Provider: THON,SALINA K COMMERCIAL RELATIONSHIP MANAGER Common Visit Codes: [id number] INP/OBS CARE (MOD) ELSIE ABREU COMMERCIAL RELATIONSHIP MANAGER Feb 22, 2024 15:04
[2024-02-22 17:42] LABS: Urine Bacteria None Seen /hpf (None Seen); Urine WBC None Seen /hpf (0 - 5)
[2024-02-22] MEDS: MORPHINE SULFATE INJ 2 MG/ml SYRG IV PRN (18:05)
[2024-02-22 18:50] LABS: Amphetamine Screen, Urine Neg (NEGATIVE); Barbiturate Scree,Urine Neg (NEGATIVE); Benzodiazephine Screen, Urine Neg (NEGATIVE); Cannabinoid Screen, Urine Neg (NEGATIVE); Cocaine Screen, Urine Neg (NEGATIVE); Opiate Scree,Urine Pos (NEGATIVE); Phencyclidine Screen, Urine Neg (NEGATIVE)
[2024-02-22 18:57] LABS: Urine Blood Negative /uL (Negative); Urine Clarity Ex.Turbid (Clear); Urine Color Yellow (Yellow); Urine Mucus FEW (None Seen); Urine Protein, UAD TRACE (Negative); Urine Specific Gravity 1.038 (1.001-1.035); Urine Squamous Epithelial Cell None Seen /hpf (<5); Urine Urobilinogen Normal (Negative); Urine pH 5.5 (5.0-9.0)
[2024-02-22] MEDS: HYDROcodone-ACET 5/325MG TAB PO PRN (20:24)
[2024-02-22] MEDS ORDERED: BISA-60 PO (20:44)
[2024-02-22 20:45] VITALS: PULSE 71; RESP 16; O2SAT 95
[2024-02-22 21:50] VITALS: BP 115/48; PULSE 71; RESP 16; TEMP 98.2; O2SAT 95
[2024-02-23 01:00] VITALS: BP 95/61; PULSE 60; RESP 17; TEMP 98.2; O2SAT 97
[2024-02-23 05:00] VITALS: BP 100/59; PULSE 95; RESP 18; TEMP 98.6; O2SAT 97
[2024-02-23 09:11] LABS: Basophils # (auto) 0 10 ^3/uL (0-0.2); Basophils % (auto) 0.3 % (0.0-2.0); Eosinophils # (auto) 0.1 10 ^3/uL (0-0.8); Eosinophils % (auto) 1.6 % (0.0-7.0); Hematocrit 37.4 % (36.0-46.0); Hemoglobin 12.4 g/dL (12.2-16.2); Lymphocytes # (auto) 1.6 10 ^3/uL (0.4-5.4); Lymphocytes % (auto) 23.3 % (10.0-50.0); Mean Corpuscular Hgb Conc. 33.1 g/dL (32.0-36.0); Mean Corpuscular Volume 84.5 fL (80.0-100.0); Monocytes # (auto) 0.5 10 ^3/uL (0-1.3); Monocytes % (auto) 7.9 % (0.0-12.0); Neutrophils # (auto) 4.6 10 ^3/uL (1.6-8.6); Neutrophils % (auto) 66.9 % (37.0-80.0); Nucleated Red Blood Cells % 0.1 %; Platelet Count (auto) 159 10^3/uL (140-450); Red Blood Cells 4.43 10^6/uL (4.0-5.20); Red Cell Distribution Width 14.3 % (11.8-14.3); White Blood Cell 6.8 10^3/uL (4.4-10.8)
[2024-02-23 09:19] LABS: Carbon Dioxide 26 mmol/L (20-31)
[2024-02-23 09:20] LABS: Calcium 9.2 mg/dL (8.7-10.4)
[2024-02-23 09:21] VITALS: BP 98/50; PULSE 74; RESP 16; TEMP 97.9; O2SAT 97
[2024-02-23 09:21] LABS: Potassium 3.9 mmol/L (3.5-5.1); Sodium 142 mmol/L (136-145)
[2024-02-23 09:24] LABS: Glucose 82 mg/dL (74-106)
[2024-02-23 09:25] LABS: BUN/Creatinine Ratio 26.8 (10.0-20.0); Blood Urea Nitrogen 19 mg/dL (9-23)
[2024-02-23 09:26] LABS: Anion Gap 7 (5-15); Chloride 109 mmol/L (98-107)
[2024-02-23] MEDS: cefTRIAXone 1GM/50ML D5W 50 ML IV ONE (11:45)
[2024-02-23 13:00] VITALS: BP 99/56; PULSE 63; RESP 16; TEMP 97.8; O2SAT 98
[2024-02-23] MEDS: metroNIDAZOLE 500MG/100ML 100 ML IV SCH (14:00)
--- NOTE | 2024-02-23 19:10 | DVHPN2 ---
Subjective Patient continues to report having severe back pain Reviewed: Care Plan, H&P, Labs, Medications Changes from previous H/P or p: No Changes General: Per HPI Eyes: No Pain, No Vision change, No Conjunctivae inflammation, No Eyelid inflammation, No Other, No Redness ENT: No Ear pain, No Ear discharge, No Nose pain, No Nose discharge, No Nose congestion, No Mouth pain, No Mouth swelling, No Throat pain, No Throat swelling, No Other Cardiovascular: No Chest Pain, No Palpitations, No Orthopnea, No Paroxysmal Noc. Dyspnea, No Edema, No Lt Headedness, No Other Respiratory: No Cough, No Dry, No Shortness of breath, No SOB with excertion, No Wheezing, No Hemoptysis, No Pleuritic Pain, No Sputum, No Other Gastrointestinal: Nausea, Vomiting, Abdominal Pain; No Diarrhea, No Constipation, No Melena, No Hematochezia, No Other Genitourinary: No Dysuria, No Frequency, No Incontinence, No Hematuria, No Retention, No Other Musculoskeletal: No other, No neck pain, No shoulder pain, No arm pain; back pain; No hand pain, No leg pain, No foot pain Skin: No Rash, No Lesions, No Jaundice, No Bruising, No Other Objective Vitals Vital Signs Date Time Temp Pulse Resp B/P (MAP) Pulse Ox O2 Delivery O2 Flow Rate FiO2 02/23/24 13:00 97.8 63 16 99/56 (70) 98 97.8 02/23/24 08:00 Room Air* 0 21 Intake/Output Intake and Output 02/23/24 07:00 Intake Total 375 ml Balance 375 ml Intake Oral 375 ml # Voids 1 General Appearance: Alert, Oriented X3, Cooperative, mild distress HEENT: Atraumatic, PERRLA Cardiovascular: Normal S1, Normal S2 Abdomen: Normal bowel sounds, Soft, No tenderness, Other (Retroperitoneal pain) Genitourinary: No Apparent Abnormalities Musculoskeletal: Normal sensory function, Normal motor function Neuro: Normal gait, Normal speech Psych/Mental Status: Mental status NL, Mood NL Medications Current Medications Medications Dose Ordered Sig/Perla Route Start Time Stop Time Status Last Admin Dose Admin Lorazepam 0.5 mg Q6HP PRN PO 02/22/24 15:00 Acetaminophen 650 mg Q6HP PRN PO 02/22/24 15:00 Acetaminophen/ Hydrocodone Bitart 1 tab Q4HP PRN PO 02/22/24 15:00 02/23/24 15:54 1 TAB Ondansetron HCl 4 mg Q4HP PRN IV 02/22/24 15:00 Morphine Sulfate 2 mg Q4HPRN PRN IV 02/22/24 15:00 02/22/24 18:05 2 MG Ceftriaxone Sodium 50 ml @ 100 mls/hr DAILY@09 IV 02/24/24 09:00 Metronidazole 100 ml @ 100 mls/hr Q8HR IV 02/23/24 14:00 02/23/24 14:00 100 MLS/HR Laboratory Results Laboratory Tests 02/23/24 08:04 Chemistry Test 02/23/24 08:04 Calcium Level 9.2 mg/dL (8.7-10.4) Urinalysis Test 02/22/24 17:41 Urine Color Yellow (Yellow) Urine Clarity Ex.turbid (Clear) Urine pH 5.5 (5.0-9.0) Urine Specific [place] 1.038 (1.001-1.035) Urine Protein Trace (Negative) H Urine Ketones Negative (Negative) Urine Blood Negative /uL (Negative) Urine Nitrite Negative (Negative) Urine Bilirubin Negative (Negative) Urine Urobilinogen Normal mg/dL (Negative) Urine Leukocyte Esterase Negative /uL (Negative) Urine RBC None seen /hpf (0 - 4) Urine WBC None seen /hpf (0 - 5) Urine Squamous Epithelial Cells None seen /hpf (<5) Urine Bacteria None seen /hpf (None Seen) Urine Mucus Few (None Seen) Urine Glucose Normal mg/dL (Normal) Labs and/or images reviewed: Labs reviewed by me, Image(s) reviewed by me Assessment/Plan Assessment/Plan Impression: -lower back pain, rule out acute pathology given lymph node involvement on CT scan -history of cholelithiasis -history of seizure disorder -obesity -homelessness Plan: -repeat CT scan with IV contrast given persistent pain to retroperitoneal area -empiric antibiotic therapy with Rocephin and Flagyl -pain management -social service consultation -check ESR, CRP Total time spent with patient discussing and formulating plan of care: 35 minutes. This medical document was created using an electronic medical record system with [employer] dictation system. Although this document has been carefully reviewed, there may still be some phonetic and typographical errors. These areas are purely typographical due to imperfections of the software programs, and do not reflect any compromise in the patient's medical care. Plan discussed with: Patient, Other (RN) My Orders Orders - TAYLER COTTRELL NP Procedure Category Date Status Time Ceftriaxone 1gm/50ml PHA 02/24/24 In Process D5w (Rocephin) 09:00 Metronidazole PHA 02/23/24 In Process 500mg/100ml (Flagyl 14:00 Date of Service: Feb 23, 2024 Billing Provider: TAYLER COTTRELL NP Common Visit Codes: [id number] INP/OBS CARE(HIGH) TAYLER COTTRELL NP Feb 23, 2024 19:10
[2024-02-23 19:57] LABS: Erythrocyte Sedimentation Rate 10 mm/hr (0-20)
[2024-02-23 20:00] VITALS: PULSE 71; RESP 18; O2SAT 97
[2024-02-23 21:00] VITALS: BP 105/61; PULSE 71; RESP 18; TEMP 98.7; O2SAT 97
[2024-02-24 01:00] VITALS: BP 104/45; PULSE 79; RESP 16; TEMP 98; O2SAT 96
[2024-02-24 05:00] VITALS: BP 102/56; PULSE 64; RESP 18; TEMP 98.3; O2SAT 97
[2024-02-24 08:00] VITALS: PULSE 71; RESP 18; O2SAT 97
[2024-02-24 09:13] VITALS: BP 107/51; PULSE 72; RESP 16; TEMP 98.2; O2SAT 96
[2024-02-24] MEDS: cefTRIAXone 1GM/50ML D5W 50 ML IV SCH (10:08)
[2024-02-24] MEDS ORDERED: IOHEXOL 300 MG/ML 100ML BOTTLE IJ ONE (10:29)
--- NOTE | 2024-02-24 11:07 | DVH ---
Exam: CT CT AB PEL WITH IV CON ONLY History: RETROPERITONEAL PAIN COMPARISON: None Technique: Multidetector spiral CT of the abdomen and pelvis was performed from lung bases to pubic s ymphysis. Intravenous contrast was administered during this examination. Portal venous imaging was obtained. Axial, coronal and sagittal multiplanar reformats were performed by the technologist on a separate workstation. Radiation Dose : 1. Abdomen/Pelvis: CTDIvol 17 mGy, DLP 850.18 mGy*cm. CONTRAST: Type of contrast: Contrast injected: ml Contrast ingested: ml Findings: Lung Bases: No acute or significant lung base finding. Normal heart size. No pleural or pericardial effusion. Liver: The liver is normal in size. No focal lesions. Normal hepatic vascular enhancement. Gallbladder and biliary Tree: Mild distention of the gallbladder without surrounding fluid or gallsto breann. Spleen: Unremarkable Pancreas: The pancreas is normal in appearance without focal lesions or abnormal enhancement. Adrenal Glands: Unremarkable Kidneys: No hydronephrosis. Bladder: Unremarkable Bowel: The stomach is grossly normal in appearance. Small bowel and colon are normal in caliber and d istribution. No appendicitis. Ascites: Absent Lymphadenopathy: Tiny retroperitoneal lymph nodes, stable. Abdominal wall and Mesentery: Unremarkable. Vasculature: The visualized abdominal aorta is normal in size and caliber. Abdominal and pelvic vess els demonstrate normal enhancement. Pelvic Organs: Prostate is enlarged. Musculoskeletal: No aggressive focal bony lesions, acute fractures or dislocation. IMPRESSION: 1. No interval change from the prior study of 02/22/2024 2. Normal appendix 3. No obstructive uropathy Radiation optimization: All CT scans at this facility use at least one of these dose optimization guadalupe hniques: Automated exposure control mA and/or kV adjustment per patient size (includes targeted exams where dose is matched to clinical indication) or iterative reconstruction.
[2024-02-24 13:00] VITALS: BP 110/65; PULSE 85; RESP 16; TEMP 98.5; O2SAT 99
[2024-02-24] MEDS ORDERED: TRAM-626 PO (14:46)
--- NOTE | 2024-02-24 14:50 | DVHDS2 ---
Discharge Summary Date of Admission Feb 22, 2024 at 14:49 Date of Discharge: Feb 24, 2024 Admitting Diagnosis Intractable back pain Labs/Diagnostic Data: Laboratory Results Test 02/23/24 08:04 02/22/24 17:41 02/22/24 11:50 White Blood Count 6.8 10^3/uL (4.4-10.8) Red Blood Count 4.43 10^6/uL (4.0-5.20) Hemoglobin 12.4 g/dL (12.2-16.2) Hematocrit 37.4 % (36.0-46.0) Mean Corpuscular Volume 84.5 fL (80.0-100.0) Mean Corpuscular Hemoglobin 28.0 pg (28.0-32.0) Mean Corpuscular Hemoglobin Concent 33.1 g/dL (32.0-36.0) Red Cell Distribution Width 14.3 % (11.8-14.3) Platelet Count 159 10^3/uL (140-450) Mean Platelet Volume 8.5 fL (6.9-10.8) Neutrophils (%) (Auto) 66.9 % (37.0-80.0) Lymphocytes (%) (Auto) 23.3 % (10.0-50.0) Monocytes (%) (Auto) 7.9 % (0.0-12.0) Eosinophils (%) (Auto) 1.6 % (0.0-7.0) Basophils (%) (Auto) 0.3 % (0.0-2.0) Neutrophils # (Auto) 4.6 10 ^3/uL (1.6-8.6) Lymphocytes # (Auto) 1.6 10 ^3/uL (0.4-5.4) Monocytes # (Auto) 0.5 10 ^3/uL (0-1.3) Eosinophils # (Auto) 0.1 10 ^3/uL (0-0.8) Basophils # (Auto) 0 10 ^3/uL (0-0.2) Nucleated Red Blood Cells 0.1 % Erythrocyte Sedimentation Rate 10 mm/hr (0-20) Sodium Level 142 mmol/L (136-145) Potassium Level 3.9 mmol/L (3.5-5.1) Chloride Level 109 mmol/L (98-107) Carbon Dioxide Level 26 mmol/L (20-31) Anion Gap 7 (5-15) Blood Urea Nitrogen 19 mg/dL (9-23) Creatinine 0.71 mg/dL (0.550-1.02) Glomerular Filtration Rate Calc 114 mL/min (>90) BUN/Creatinine Ratio 26.8 (10.0-20.0) Serum Glucose 82 mg/dL (74-106) Calcium Level 9.2 mg/dL (8.7-10.4) C-Reactive Protein High Sensitivity 0.87 mg/dL (<1.0) Urine Color Yellow (Yellow) Urine Clarity Ex.turbid (Clear) Urine pH 5.5 (5.0-9.0) Urine Specific [place] 1.038 (1.001-1.035) Urine Protein Trace (Negative) Urine Ketones Negative (Negative) Urine Blood Negative /uL (Negative) Urine Nitrite Negative (Negative) Urine Bilirubin Negative (Negative) Urine Urobilinogen Normal mg/dL (Negative) Urine Leukocyte Esterase Negative /uL (Negative) Urine RBC None seen /hpf (0 - 4) Urine WBC None seen /hpf (0 - 5) Urine Squamous Epithelial Cells None seen /hpf (<5) Urine Bacteria None seen /hpf (None Seen) Urine Mucus Few (None Seen) Urine Glucose Normal mg/dL (Normal) Urine Opiates Screen Pos (NEGATIVE) Urine Fentanyl Screen Neg (NEGATIVE) Urine Barbiturates Screen Neg (NEGATIVE) Urine Phencyclidine Screen Neg (NEGATIVE) Urine Amphetamines Screen Neg (NEGATIVE) Urine Benzodiazepines Screen Neg (NEGATIVE) Urine Cocaine Screen Neg (NEGATIVE) Urine Cannabinoids Screen Neg (NEGATIVE) Total Bilirubin 0.2 mg/dL (0.2-1.0) Aspartate Amino Transferase (AST) 13 U/L (13-40) Alanine Aminotransferase (ALT) 16 U/L (7-40) Alkaline Phosphatase 57 U/L (46-116) Total Protein 7.0 g/dL (5.7-8.2) Albumin 4.1 g/dL (3.2-4.8) Other Laboratory Tests 02/23/24 08:04 Brief Hx & Hospital Course: History of Present Illness Ingrid Fay is a 34-year-old female with past medical history of anemia, anxiety, cholelithiasis, seizure at 16 years old last reported, obesity, bilateral tubal ligation, and bilateral ear tubes who presents to the ED today for nausea, vomiting, and right flank pain x1 day. Patient reports that around 6:00 a.m. this morning she woke up with right flank pain aching, constant in nature, and 10/10 pain. Patient reports that she was vomiting yellow emesis today and has been unable to eat. Patient reports that she is taking her medications and compliant. Patient also reports that she lives in her car. Patient denies substance, tobacco, illicit drug use, fever, chills, diarrhea, lightheadedness, and dizziness. Course of hospitalization: Patient had CT scan of the abdomen and pelvis with IV contrast given additional scan revealed lymphadenopathy. Patient was put on prophylactic antibiotics prior to CT scan. Inflammatory markers were also check. ESR and CRP are currently negative. White blood cell count is within normal range. Patient is afebrile. No new diagnostic findings were found with CT scan with IV contrast. This was discussed with the patient. Probable etiology of pain being musculoskeletal. Patient was agreeable to be discharged home and follow up with her PCP. Physical examination General: Alert and Oriented x3. No acute distress. Well-nourished. Eyes: EOMI. Anicteric. HENT: Moist mucous membranes. Lungs: Clear to auscultation bilaterally. No accessory muscle use. Cardiovascular: Regular rate and rhythm. No murmur. No JVD. Abdomen: Soft, non-tender and non-distended. No palpable masses. Extremities: No edema. Non-tender. Skin: No rashes or lesions. Warm. Neurologic: No focal neurological deficits. CN II-XII grossly intact, but not individually tested. Psychiatric: Cooperative. Appropriate mood and affect. Total time spent with patient discussing and formulating plan of care: 35 minutes. This medical document was created using an electronic medical record system with [employer] dictation system. Although this document has been carefully reviewed, there may still be some phonetic and typographical errors. These areas are purely typographical due to imperfections of the software programs, and do not reflect any compromise in the patient's medical care. Condition at Discharge: Fair Final Diagnosis/Problems List Lower back pain, probably musculoskeletal in nature Secondary Diagnosis: -history of cholelithiasis -history of seizure disorder -obesity -homelessness Discharge Disposition: Home Discharge Instruct/Medications Diet: Cardiac 2g Na,low cholest Activity: No Restrictions, As Tolerated Follow Up/Referral: Follow up with PCP in 1-2 weeks Medications: Continue all previous home medications Tramadol 50 mg q.12 hours as needed for pain not relieved by [id number] Tylenol 500 mg every 6 hours 36 Discharge Statement: "Patient was advised to return to the ER or call 911 if any headaches, dizziness, shortness of breath, chest pain, abdominal pain, bleeding, fevers, or worsening of medical condition. Patient was counseled about treatment plan, medications, possible side effects, patientverbalized understanding. All questions were answered to the best of my ability. This discharge took greater then 30 minutes in planning, reviewing documentation, counseling the patient, and discussing with other team members." ASSESSMENT ASSESSMENT Assessment Lower back pain, probably musculoskeletal in nature Date of Service: Feb 24, 2024 Billing Provider: TAYLER COTTRELL NP Common Visit Codes: 32302-ICD/OBS DISCH DAY >30min TAYLER COTTRELL NP Feb 24, 2024 14:50
== END 2024-02-24 17:32 | disposition home or self-care (01) | DRG 552 ==
LOC: ER 09:38 → EDUNIT# 09:38 → EDBD 09:38 → OVERFLOW 14:49 → WEST WING 21:33
PROVIDERS: ATTEND Nurse Practitioner Acute Care
DX: M54.50 Low back pain, unspecified (principal); Z59.02 Unsheltered homelessness; K80.20 Calculus of gallbladder without cholecystitis without obstruction; E66.9 Obesity, unspecified; G40.909 Epilepsy, unspecified, not intractable, without status epilepticus; F41.9 Anxiety disorder, unspecified; D64.9 Anemia, unspecified; N83.202 Unspecified ovarian cyst, left side; R59.1 Generalized enlarged lymph nodes; Z88.0 Allergy status to penicillin; Z88.8 Allergy status to other drugs, medicaments and biological substances; Z79.899 Other long term (current) drug therapy; Z82.49 Family history of ischemic heart disease and other diseases of the circulatory system; Z68.34 Body mass index [BMI] 34.0-34.9, adult
CPT/HCPCS: 36415; 74176; 74177; 80048; 80053; 80307; 81001; 85025; 85652; 86141; 96361; 96374; 96375; G0378; J1885; J2405; J3490